=== PATIENT | male | born 1975 | race Caucasian/White ===

== ENCOUNTER 2020-11-06 10:33 | Outpatient (CLI) | payer BC ==
[2020-11-06 14:37] LABS: BASOPHILS % (AUTO) 0.6 %; EOSINOPHILS # (AUTO) 0.1 10^3/uL (0.0-0.7); HCT - HEMATOCRIT 46.8 % (42.0-52.0); LYMPHOCYTES # (AUTO) 1.3 10^3/uL (1.5-3.5); MEAN CORPUSCULAR HEMOGLOBIN 32.2 pg (27.0-31.0); MEAN CORPUSCULAR HGB CONC 34.2 g/dL (32.0-36.0); MEAN CORPUSCULAR VOLUME 94.2 fL (80.0-94.0); MEAN PLATELET VOLUME 10.1 fL (7.4-11.4); MONOCYTES # (AUTO) 0.5 10^3/uL (0.0-1.0); MONOCYTES % (AUTO) 10.4 %; NEUTROPHILS # (AUTO) 3.3 10^3/uL (1.5-6.6); NEUTROPHILS % (AUTO) 63.8 %; PLT - PLATELET COUNT 241 10^3/uL (130-450); RED BLOOD COUNT 4.97 10^6/uL (4.70-6.10); RED CELL DISTRIBUTION WIDTH 12.3 % (12.0-15.0); WHITE BLOOD COUNT 5.2 x10^3/uL (4.8-10.8)
[2020-11-06 15:51] LABS: ALBUMIN 4.6 g/dL (3.2-5.5); ALBUMIN/GLOBULIN RATIO 1.4 (1.0-2.2); ALKALINE PHOSPHATASE 78 IU/L (42-121); ALT ALANINE AMINOTRANSFERASE 73 IU/L (10-60); AST ASPARTATE AMINOTRANSFERASE 47 IU/L (10-42); BILIRUBIN,TOTAL 1.2 mg/dL (0.2-1.0); BUN - BLOOD UREA NITROGEN 20 mg/dL (6-20); CALCIUM 9.4 mg/dL (8.5-10.3); CARBON DIOXIDE - CO2 27 mmol/L (21-32); CHLORIDE 100 mmol/L (101-111); CHOL/HDL RATIO 4.7 (<5.0); CHOLESTEROL 184 mg/dL; GFR - MDRD 82 (>89); GLUCOSE 98 mg/dL (70-100); HDL CHOLESTEROL 39 mg/dL; LDL CHOLESTEROL,CALCULATED 71 mg/dL; LDL/HDL RATIO 1.8 (<3.6); POTASSIUM 4.1 mmol/L (3.5-5.0); SODIUM 136 mmol/L (135-145); TRIGLYCERIDES 368 mg/dL; VLDL CHOLESTEROL 74 mg/dL
[2020-11-06 16:03] LABS: THYROID STIMULATING HORMONE 1.13 uIU/mL (0.34-5.60)
== END 2020-11-06 10:34 | disposition home or self-care (01) ==
LOC: LAB.S 10:33
PROVIDERS: ATTEND Registered Nurse
DX: Z00.00 Encounter for general adult medical examination without abnormal findings (principal); E29.1 Testicular hypofunction
CPT/HCPCS: 36415; 80053; 80061; 83721; 84153; 84403; 84443; 85025

== ENCOUNTER 2022-02-17 12:10 | Outpatient (CLI) | payer BC ==
[2022-02-18 09:31] LABS: BASOPHILS % (AUTO) 0.6 %; EOSINOPHILS # (AUTO) 0.1 10^3/uL (0.0-0.7); HCT - HEMATOCRIT 44.2 % (42.0-52.0); HGB - HEMOGLOBIN 14.5 g/dL (14.0-18.0); LYMPHOCYTES # (AUTO) 1.3 10^3/uL (1.5-3.5); LYMPHOCYTES % (AUTO) 23.1 %; MEAN CORPUSCULAR HEMOGLOBIN 31.7 pg (27.0-31.0); MEAN CORPUSCULAR HGB CONC 32.8 g/dL (32.0-36.0); MEAN CORPUSCULAR VOLUME 96.7 fL (80.0-94.0); MEAN PLATELET VOLUME 10.1 fL (7.4-11.4); MONOCYTES # (AUTO) 0.5 10^3/uL (0.0-1.0); MONOCYTES % (AUTO) 8.5 %; NEUTROPHILS # (AUTO) 3.6 10^3/uL (1.5-6.6); NEUTROPHILS % (AUTO) 65.6 %; PLT - PLATELET COUNT 261 10^3/uL (130-450); RED BLOOD COUNT 4.57 10^6/uL (4.70-6.10); WHITE BLOOD COUNT 5.4 x10^3/uL (4.8-10.8)
[2022-02-18 10:41] LABS: ALBUMIN 4.4 g/dL (3.2-5.5); ALBUMIN/GLOBULIN RATIO 1.3 (1.0-2.2); ALKALINE PHOSPHATASE 89 IU/L (42-121); ALT ALANINE AMINOTRANSFERASE 70 IU/L (10-60); AST ASPARTATE AMINOTRANSFERASE 47 IU/L (10-42); BILIRUBIN,TOTAL 0.8 mg/dL (0.2-1.0); BUN - BLOOD UREA NITROGEN 15 mg/dL (6-20); CALCIUM 9.9 mg/dL (8.5-10.3); CARBON DIOXIDE - CO2 27 mmol/L (21-32); CHLORIDE 100 mmol/L (101-111); CHOLESTEROL 164 mg/dL; GFR - MDRD 81 (>89); GLUCOSE 87 mg/dL (70-100); HDL CHOLESTEROL 41 mg/dL; LDL CHOLESTEROL,CALCULATED 43 mg/dL; POTASSIUM 4.3 mmol/L (3.5-5.0); SODIUM 138 mmol/L (135-145); TOTAL PROTEIN 7.8 g/dL (6.7-8.2); TRIGLYCERIDES 398 mg/dL; VLDL CHOLESTEROL 80 mg/dL
[2022-02-18 10:51] LABS: THYROID STIMULATING HORMONE 1.53 uIU/mL (0.34-5.60)
== END 2022-02-17 12:11 | disposition home or self-care (01) ==
LOC: LAB.N 12:10
PROVIDERS: ATTEND Registered Nurse
DX: E29.1 Testicular hypofunction (principal); Z12.5 Encounter for screening for malignant neoplasm of prostate; Z13.29 Encounter for screening for other suspected endocrine disorder; Z79.899 Other long term (current) drug therapy
CPT/HCPCS: 36415; 80053; 80061; 83721; 84153; 84403; 84443; 85025

== ENCOUNTER 2022-03-16 08:28 | Emergency (ER) | payer BC ==
--- OUTSIDE RECORDS SUMMARY | 2022-03-16 08:53 | EXTERNAL MEDICAL SUMMARY RPT | Continuity of Care Document ---
:1975 Author Organization [facility] Address [address] [place] [address] Phone Care Team Providers Name Role Phone Unavailable Unavailable Unavailable Rachel Norman Unavailable Unavailable Allergies No information. Encounters No information. Functional Status No information. Immunizations No information. Medications date description facility 2022-01-27 00:00 buspirone [facility] sanjay 2021-12-20 00:00 escitalopram oxalate Walk-In [facility] Pr imary [facility] sanjay 2022-03-02 00:00 testosterone cypionate Walk[facility] sanjay 2022-01-27 00:00 lisinopril-hydrochlorothiazide Walk[facility]In [facility] sanjay 2022-01-05 00:00 amoxicillin Walk[facility]In [facility] sanjay 2022-01-05 00:00 amoxicillin [facility]In [facility] sanjay 2022-03-02 00:00 syringe with needle Walk-In Clinic [facility] Services sanjay 2022-01-27 00:00 bupropion hcl Walk-In [facility] Terell grace 2022-03-15 00:00 hydrocortisone-pramoxine Walk-In [facility] c [facility] sanjay 2022-03-15 00:00 nitroglycerin Walk[facility]In [facility] Prim [facility] sanjay 2022-01-05 00:00 amoxicillin Walk[facility]In [facility] Prim [facility] sanjay 2022-03-15 00:00 nitroglycerin Walk[facility]In [facility] sanjay 2022-03-02 00:00 testosterone cypionate Walk[facility]In [facility] Terell grace 2022-01-27 00:00 lisinopril-hydrochlorothiazide Walk[facility]In [facility] Terell grace 2022-03-15 00:00 hydrocortisone-pramoxine Walk[facility]In [facility] c [facility] C sanjay 2022-03-02 00:00 syringe with needle Walk-In Clinic Latsaha roxanna [facility] C sanjay 2022-03-02 00:00 testosterone cypionate Walk-In Clinic [facility] C sanjay 2021-12-20 00:00 amlodipine Walk-In [facility] Prim [facility] C sanjay 2022-01-04 00:00 amlodipine Walk-In [facility] Prim [facility] C sanjay 2022-01-05 00:00 amlodipine Walk-In [facility] Prim [facility] C sanjay 2022-01-27 00:00 amlodipine Walk-In [facility] Prim [facility] C sanjay 2022-02-18 00:00 amlodipine Walk-In [facility] Prim [facility] C sanjay 2022-03-02 00:00 amlodipine Walk-In [facility] Prim [facility] C sanjay 2022-03-08 00:00 amlodipine Walk-In [facility] Prim [facility] C sanjay 2022-03-09 00:00 amlodipine Walk-In [facility] Prim [facility] C sanjay 2022-03-15 00:00 amlodipine Walk-In [facility] Prim [facility] C sanjay 2022-01-27 00:00 buspirone Walk[facility]In [facility] Terell grace 2022-01-27 00:00 lisinopril-hydrochlorothiazide Walk[facility]In Clinic [facility] C sanjay 2021-12-20 00:00 amlodipine Walk-[facility] Prim [facility] C sanjay 2022-01-04 00:00 amlodipine Walk-In [facility] Prim [facility] C sanjay 2022-01-05 00:00 amlodipine Walk-In [facility] C sanjay 2022-01-27 00:00 amlodipine Walk-In [facility] Prim [facility] C sanjay 2022-02-18 00:00 amlodipine Walk-In [facility] Prim [facility] C sanjay 2022-03-02 00:00 amlodipine Walk-In [facility] Terell grace 2022-03-08 00:00 amlodipine Walk-In [facility] Prim [facility] C sanjay 2022-03-09 00:00 amlodipine Walk-In [facility] Prim [facility] C sanjay 2022-03-15 00:00 amlodipine Walk-In [facility] Prim [facility] C sanjay 2022-01-05 00:00 amoxicillin Walk[facility]In [facility] Prim [facility] C sanjay 2021-12-20 00:00 amlodipine Walk-In [facility] Prim [facility] C sanjay 2022-01-04 00:00 amlodipine Walk-In Clinic Prim [facility] C sanjay 2022-01-05 00:00 amlodipine Walk-In [facility] Prim [facility] C sanjay 2022-01-27 00:00 amlodipine Walk-In Clinic Prim [facility] C sanjay 2022-02-18 00:00 amlodipine Walk-In [facility] Prim [facility] C sanjay 2022-03-02 00:00 amlodipine Walk-In [facility] Prim [facility] C sanjay 2022-03-08 00:00 amlodipine Walk-In Clinic Prim [facility] C sanjay 2022-03-09 00:00 amlodipine Walk-In [facility] Prim [facility] C sanjay 2022-03-15 00:00 amlodipine Walk-In Clinic Prim [facility] C sanjay 2021-12-20 00:00 escitalopram oxalate Walk-In Clinic Pr imary [facility] C sanjay 2022-01-27 00:00 lisinopril-hydrochlorothiazide Walk-In Clinic [facility] C sanjay 2021-12-20 00:00 atorvastatin Walk-In Clinic Prim [facility] C sanjay 2022-01-04 00:00 atorvastatin Walk-In Clinic Prim [facility] C sanjay 2022-01-05 00:00 atorvastatin Walk-In Clinic Prim [facility] C sanjay 2022-01-27 00:00 atorvastatin Walk-In Clinic Prim [facility] C sanjay 2022-02-18 00:00 atorvastatin Walk-In Clinic Prim [facility] C sanjay 2022-03-02 00:00 atorvastatin Walk-In Clinic Prim [facility] C sanjay 2022-03-08 00:00 atorvastatin Walk-In Clinic Prim [facility] C sanjay 2022-03-09 00:00 atorvastatin Walk-In Clinic Prim [facility] C sanjay 2022-03-15 00:00 atorvastatin Walk-In Clinic Prim [facility] C sanjay 2021-12-20 00:00 atorvastatin Walk-In [facility] Prim [facility] C sanjay 2022-01-04 00:00 atorvastatin Walk-In Clinic Prim [facility] C sanjay 2022-01-05 00:00 atorvastatin Walk-In Clinic Prim rtevor [facility] C sanjay 2022-01-27 00:00 atorvastatin Walk-In Clinic Prim [facility] C sanjay 2022-02-18 00:00 atorvastatin Walk-In Clinic Prim [facility] C sanjay 2022-03-02 00:00 atorvastatin Walk-In Clinic Prim [facility] C sanjay 2022-03-08 00:00 atorvastatin Walk-In Clinic Prim [facility] C sanjay 2022-03-09 00:00 atorvastatin Walk-In Clinic Prim [facility] C sanjay 2022-03-15 00:00 atorvastatin Walk-In Clinic Prim [facility] C sanjay 2022-03-15 00:00 hydrocodone-acetaminophen Walk-In Clin ic [facility] C sanjay 2022-01-27 00:00 buspirone Walk-In [facility] Prim [facility] C sanjay 2021-12-20 00:00 escitalopram oxalate Walk-In Clinic Pr imary [facility] C sanjay 2022-01-27 00:00 bupropion hcl Walk-In [facility] Prim [facility] C sanjay 2022-03-15 00:00 nitroglycerin Walk-In Clinic Prim [facility] C sanjay 2021-12-20 00:00 amlodipine Walk-In [facility] Prim [facility] C sanjay 2022-01-04 00:00 amlodipine Walk-In Clinic Prim [facility] C sanjay 2022-01-05 00:00 amlodipine Walk-In Clinic Prim [facility] C sanjay 2022-01-27 00:00 amlodipine Walk-In [facility] Prim [facility] C sanjay 2022-02-18 00:00 amlodipine Walk-In Clinic Prim [facility] C sanjay 2022-03-02 00:00 amlodipine Walk-In Clinic Prim [facility] C sanjay 2022-03-08 00:00 amlodipine Walk-In Clinic Prim [facility] C sanjay 2022-03-09 00:00 amlodipine Walk-In Clinic Prim [facility] C sanjay 2022-03-15 00:00 amlodipine Walk-In Clinic Prim [facility] C sanjay 2021-12-20 00:00 atorvastatin Walk-In Clinic Prim [facility] C sanjay 2022-01-04 00:00 atorvastatin Walk-In Clinic Prim [facility] C sanjay 2022-01-05 00:00 atorvastatin Walk-In Clinic Prim [facility] C sanjay 2022-01-27 00:00 atorvastatin Walk-In [facility] Prim [facility] C sanjay 2022-02-18 00:00 atorvastatin Walk-In [facility] Prim [facility] C sanjay 2022-03-02 00:00 atorvastatin Walk-In [facility] Prim [facility] C sanjay 2022-03-08 00:00 atorvastatin Walk-In Clinic Prim tervor [facility] C sanjay 2022-03-09 00:00 atorvastatin Walk-In Clinic Prim [facility] C sanjay 2022-03-15 00:00 atorvastatin Walk-In Clinic Prim [facility] C sanjay 2021-12-20 00:00 atorvastatin Walk-In Clinic Prim [facility] C sanjay 2022-01-04 00:00 atorvastatin Walk-In Clinic Prim [facility] C sanjay 2022-01-05 00:00 atorvastatin Walk-In Clinic Prim rtevor [facility] C sanjay 2022-01-27 00:00 atorvastatin Walk-In Clinic Prim [facility] C sanjay 2022-02-18 00:00 atorvastatin Walk-In Clinic Prim [facility] Terell grace 2022-03-02 00:00 atorvastatin [facility] Terell grace 2022-03-08 00:00 atorvastatin Walk-In Clinic [facility] Care & Anc[facility] Services C sanjay 2022-03-09 00:00 atorvastatin Walk-In Clinic [facility] Services Terell grace 2022-03-15 00:00 atorvastatin Walk-In Clinic [facility] Care [facility] Services Terell grcae 2022-03-15 00:00 hydrocodone-acetaminophen Walk-In Clin ic [facility] Terell grace 2021-12-20 00:00 escitalopram oxalate Walk-In Clinic [facility] Anc[facility] Services Terell grace 2022-03-15 00:00 hydrocortisone-pramoxine Walk-In Cl[facility] Services Terell grace 2022-03-15 00:00 hydrocodone-acetaminophen Walk-In Clin ic [facility] Terell grace 2022-03-02 00:00 testosterone cypionate Walk-In Clinic [facility] Terell grace 2022-01-27 00:00 bupropion hcl Walk-In Clinic [facility] Services Terell grace 2022-03-15 00:00 hydrocodone-acetaminophen Walk-In Clin ic [facility] Services Terell grace 2022-01-27 00:00 buspirone Walk-In Clinic [facility] Care [facility] Anc[facility] Services Terell grace 2022-03-15 00:00 nitroglycerin Walk-In Clinic [facility] Services Terell grace 2022-03-15 00:00 hydrocortisone-pramoxine Walk[facility]In Cl[facility] Services Terell grace 2022-03-02 00:00 syringe with needle Walk-In Clinic [facility] Care & Anc[facility] Services Terell grace 2022-01-27 00:00 bupropion hcl Walk-In Clinic [facility] Care & Anc[facility] Services Terell grace Problems date description facility 2022-01-04 00:00 Chronic maxillary sinusitis Walk-In Cl in [facility] Services Terell grace 2022-01-25 00:00 Thyroid disorder screening Walk-In Cli hilary Primary [facility] Services Terell grace 2022-01-25 00:00 Long-term drug therapy Walk-In Clinic [facility] Terell grace 2022-01-25 00:00 Screening for malignant neoplasm Walk- In Clinic Primary Care & of prostate Ancillary Services Terell sanjay 2022-01-25 00:00 Long-term (current) drug use Walk-In C [facility] Primary Care & Ancillary Services Terell grace 2022-01-25 00:00 Screening for malignant neoplasms Walk -In Clinic [facility] Care & of prostate Ancillary Services Terell sanjay 2022-01-25 00:00 Screening for thyroid disorders Walk-I n Clinic [facility] Services Terell sanjay 2022-01-25 00:00 Encounter for screening for Walk-In Cl in Primary Care & malignant neoplasm of prostate Ancillary Services Ehsan 2022-01-25 00:00 Encounter for screening for other Walk -In Clinic Primary Care & suspected endocrine disorder Ancillary S manuel Manriquezton 2022-01-25 00:00 Other intermediate card tender (current) drug Walk-In Clinic Primary Care & therapy Ancillary Services Terell sanjay 2022-03-15 00:00 Internal thrombosed hemorrhoids Walk[facility]I n Clinic [facility] Terell grace 2022-03-15 00:00 Thrombosed internal hemorrhoids Walk[facility]I n [facility] Terell sanjay 2022-03-15 00:00 Other hemorrhoids Walk[facility]In [facility] Prim [facility] Terell grace Procedures date description facility 2022-01-04 00:00 Visit Code Hold Walk-In [facility] Prim [facility] Terell escalonasanjay 2022-01-25 00:00 Visit Code Hold Walk-In [facility] Prim [facility] Terell grace 2022-03-15 00:00 Visit Code Hold Walk-In [facility] Prim [facility] Services Terell escalonasanjay 2022-01-25 00:00 First Vx - Ix admin via ID IM or Walk- In Clinic Primary Care & jet injects without counseling by Ancill trevor Services Ehsan physician 2022-01-25 00:00 Fluarix Quadrivalent Intramuscular Wal [facility]-In Clinic [facility] & Suspension Prefilled Syringe 0.5 ML Anci llary Services Ehsan Results/Labs test date author facility value unit interpret ation Result panel 1 (unknown) (no date) (unknown) Walk-In (no value) (units (unk nown) Clinic Primary unknown) [facility] Services Ehsan Result panel 2 (unknown) (no date) (unknown) Walk-In (no value) (units (unk nown) Clinic Primary unknown) [facility] Ehsan Result panel 3 (unknown) (no date) (unknown) Walk-In (no value) (units (unk nown) Clinic Primary unknown) [facility] Ehsan Result panel 4 (unknown) (no date) (unknown) Walk-In (no value) (units (unk nown) Clinic Primary unknown) [facility] Ehsan Result panel 5 (unknown) (no date) (unknown) Walk-In (no value) (units (unk nown) Clinic Primary unknown) [facility] Ehsan Result panel 6 (unknown) (no date) (unknown) Walk-In (no value) (units (unk nown) Clinic Primary unknown) [facility] Ehsan Result panel 7 (unknown) (no date) (unknown) Walk-In (no value) (units (unk nown) Clinic Primary unknown) [facility] Ehsan Result panel 8 (unknown) (no date) (unknown) Walk-In (no value) (units (unk nown) Clinic Primary unknown) [facility] Ehsan Result panel 9 (unknown) (no date) (unknown) Walk-In (no value) (units (unk nown) Clinic Primary unknown) [facility] Ehsan Result panel 10 (unknown) (no date) (unknown) Walk-In (no value) (units (unk nown) Clinic Primary unknown) [facility] Ehsan Result panel 11 (unknown) (no date) (unknown) Walk-In (no value) (units (unk nown) Clinic Primary unknown) [facility] Ehsan Result panel 12 (unknown) (no date) (unknown) Walk-In (no value) (units (unk nown) Clinic Primary unknown) [facility] Ehsan Result panel 13 (unknown) (no date) (unknown) Walk-In (no value) (units (unk nown) Clinic Primary unknown) [facility] Ehsan Result panel 14 (unknown) (no date) (unknown) Walk-In (no value) (units (unk nown) Clinic Primary unknown) [facility] Ehsan Result panel 15 (unknown) (no date) (unknown) Walk-In (no value) (units (unk nown) Clinic Primary unknown) [facility] Ehsan Result panel 16 (unknown) (no date) (unknown) Walk-In (no value) (units (unk nown) Clinic Primary unknown) [facility] Ehsan Result panel 17 (unknown) (no date) (unknown) Walk-In (no value) (units (unk nown) Clinic Primary unknown) [facility] Ehsan Result panel 18 (unknown) (no date) (unknown) Walk-In (no value) (units (unk nown) Clinic Primary unknown) [facility] Ehsan Result panel 19 (unknown) (no date) (unknown) Walk-In (no value) (units (unk nown) Clinic Primary unknown) [facility] Ehsan Result panel 20 (unknown) (no date) (unknown) Walk-In (no value) (units (unk nown) Clinic Primary unknown) [facility] Ehsan Result panel 21 (unknown) (no date) (unknown) Walk-In (no value) (units (unk nown) Clinic Primary unknown) [facility] Ehsan Result panel 22 (unknown) (no date) (unknown) Walk-In (no value) (units (unk nown) Clinic Primary unknown) [facility] Ehsan Result panel 23 (unknown) (no date) (unknown) Walk-In (no value) (units (unk nown) Clinic Primary unknown) [facility] Ehsan Result panel 24 (unknown) (no date) (unknown) Walk-In (no value) (units (unk nown) Clinic Primary unknown) [facility] Ehsan Result panel 25 (unknown) (no date) (unknown) Walk-In (no value) (units (unk nown) Clinic Primary unknown) [facility] Ehsan Result panel 26 (unknown) (no date) (unknown) Walk-In (no value) (units (unk nown) Clinic Primary unknown) [facility] Ehsan Result panel 27 (unknown) (no date) (unknown) Walk-In (no value) (units (unk nown) Clinic Primary unknown) [facility] Ehsan Result panel 28 (unknown) (no date) (unknown) Walk-In (no value) (units (unk nown) Clinic Primary unknown) [facility] Ehsan Result panel 29 (unknown) (no date) (unknown) Walk-In (no value) (units (unk nown) Clinic Primary unknown) [facility] Ehsan Result panel 30 (unknown) (no date) (unknown) Walk-In (no value) (units (unk nown) Clinic Primary unknown) [facility] Ehsan Result panel 31 (unknown) (no date) (unknown) Walk-In (no value) (units (unk nown) Clinic Primary unknown) [facility] Services Ehsan Result panel 32 (unknown) (no date) (unknown) Walk-In (no value) (units (unk nown) Clinic Primary unknown) [facility] Ehsan Result panel 33 (unknown) (no date) (unknown) Walk-In (no value) (units (unk nown) Clinic Primary unknown) [facility] Ehsan Result panel 34 (unknown) (no date) (unknown) Walk-In (no value) (units (unk nown) Clinic Primary unknown) [facility] Ehsan Result panel 35 (unknown) (no date) (unknown) Walk-In (no value) (units (unk nown) Clinic Primary unknown) [facility] Ehsan Result panel 36 (unknown) (no date) (unknown) Walk-In (no value) (units (unk nown) Clinic Primary unknown) [facility] Ehsan Result panel 37 (unknown) (no date) (unknown) Walk-In (no value) (units (unk nown) Clinic Primary unknown) [facility] Ehsan Result panel 38 (unknown) (no date) (unknown) Walk-In (no value) (units (unk nown) Clinic Primary unknown) [facility] Ehsan Result panel 39 (unknown) (no date) (unknown) Walk-In (no value) (units (unk nown) Clinic Primary unknown) [facility] Ehsan Result panel 40 (unknown) (no date) (unknown) Walk-In (no value) (units (unk nown) Clinic Primary unknown) [facility] Ehsan Result panel 41 (unknown) (no date) (unknown) Walk-In (no value) (units (unk nown) Clinic Primary unknown) [facility] Ehsan Result panel 42 (unknown) (no date) (unknown) Walk-In (no value) (units (unk nown) Clinic Primary unknown) [facility] Ehsan Result panel 43 (unknown) (no date) (unknown) Walk-In (no value) (units (unk nown) Clinic Primary unknown) [facility] Ehsan Result panel 44 (unknown) (no date) (unknown) Walk-In (no value) (units (unk nown) Clinic Primary unknown) [facility] Ehsan Result panel 45 (unknown) (no date) (unknown) Walk-In (no value) (units (unk nown) Clinic Primary unknown) [facility] Ehsan Result panel 46 (unknown) (no date) (unknown) Walk-In (no value) (units (unk nown) Clinic Primary unknown) [facility] Ehsan Result panel 47 (unknown) (no date) (unknown) Walk-In (no value) (units (unk nown) Clinic Primary unknown) [facility] Ehsan Result panel 48 (unknown) (no date) (unknown) Walk-In (no value) (units (unk nown) Clinic Primary unknown) [facility] Ehsan Result panel 49 (unknown) (no date) (unknown) Walk-In (no value) (units (unk nown) Clinic Primary unknown) [facility] Ehsan Result panel 50 (unknown) (no date) (unknown) Walk-In (no value) (units (unk nown) Clinic Primary unknown) [facility] Ehsan Result panel 51 (unknown) (no date) (unknown) Walk-In (no value) (units (unk nown) Clinic Primary unknown) [facility] Ehsan Result panel 52 (unknown) (no date) (unknown) Walk-In (no value) (units (unk nown) Clinic Primary unknown) [facility] Ehsan Result panel 53 (unknown) (no date) (unknown) Walk-In (no value) (units (unk nown) Clinic Primary unknown) [facility] Ehsan Result panel 54 (unknown) (no date) (unknown) Walk-In (no value) (units (unk nown) Clinic Primary unknown) [facility] Ehsan Result panel 55 (unknown) (no date) (unknown) Walk-In (no value) (units (unk nown) Clinic Primary unknown) [facility] Ehsan Result panel 56 (unknown) (no date) (unknown) Walk-In (no value) (units (unk nown) Clinic Primary unknown) [facility] Ehsan Result panel 57 (unknown) (no date) (unknown) Walk-In (no value) (units (unk nown) Clinic Primary unknown) [facility] Ehsan Result panel 58 (unknown) (no date) (unknown) Walk-In (no value) (units (unk nown) Clinic Primary unknown) [facility] Ehsan Result panel 59 (unknown) (no date) (unknown) Walk-In (no value) (units (unk nown) Clinic Primary unknown) [facility] Ehsan Result panel 60 (unknown) (no date) (unknown) Walk-In (no value) (units (unk nown) Clinic Primary unknown) [facility] Ehsan Result panel 61 (unknown) (no date) (unknown) Walk-In (no value) (units (unk nown) Clinic Primary unknown) [facility] Ehsan Result panel 62 (unknown) (no date) (unknown) Walk-In (no value) (units (unk nown) Clinic Primary unknown) Care [facility] Ehsan Result panel 63 (unknown) (no date) (unknown) Walk-In (no value) (units (unk nown) Clinic Primary unknown) [facility] Ehsan Result panel 64 (unknown) (no date) (unknown) Walk-In (no value) (units (unk nown) Clinic Primary unknown) [facility] Ehsan Result panel 65 (unknown) (no date) (unknown) Walk-In (no value) (units (unk nown) Clinic Primary unknown) Care [facility] Ehsan Result panel 66 (unknown) (no date) (unknown) Walk-In (no value) (units (unk nown) Clinic Primary unknown) [facility] Ehsan Result panel 67 (unknown) (no date) (unknown) Walk-In (no value) (units (unk nown) Clinic Primary unknown) [facility] Ehsan Result panel 68 (unknown) (no date) (unknown) Walk-In (no value) (units (unk nown) Clinic Primary unknown) Care [facility] Services Ehsan Result panel 69 (unknown) (no date) (unknown) Walk-In (no value) (units (unk nown) Clinic Primary unknown) Care [facility] Services Ehsan Result panel 70 (unknown) (no date) (unknown) Walk-In (no value) (units (unk nown) Clinic Primary unknown) Care [facility] Services Ehsan Result panel 71 (unknown) (no date) (unknown) Walk-In (no value) (units (unk nown) Clinic Primary unknown) Care [facility] Services Ehsan Result panel 72 (unknown) (no date) (unknown) Walk-In (no value) (units (unk nown) Clinic Primary unknown) Care [facility] Services Ehsan Result panel 73 (unknown) (no date) (unknown) Walk-In (no value) (units (unk nown) Clinic Primary unknown) Care [facility] Services Ehsan Result panel 74 (unknown) (no date) (unknown) Walk-In (no value) (units (unk nown) Clinic Primary unknown) Care [facility] Ehsan Result panel 75 (unknown) (no date) (unknown) Walk-In (no value) (units (unk nown) Clinic Primary unknown) Care [facility] Ehsan Result panel 76 (unknown) (no date) (unknown) Walk-In (no value) (units (unk nown) Clinic Primary unknown) Care [facility] Ehsan Result panel 77 (unknown) (no date) (unknown) Walk-In (no value) (units (unk nown) Clinic Primary unknown) Care & [facility] Result panel 78 (unknown) (no date) (unknown) [facility] Result panel 79 (unknown) (no date) (unknown) [facility] (no value) [facility] Result panel 80 (unknown) (no date) (unknown) [facility] (no value) [facility] Result panel 81 (unknown) (no date) (unknown) [facility] (no value) [facility] Result panel 82 (unknown) (no date) (unknown) [facility] (no value) [facility] Result panel 83 (unknown) (no date) (unknown) [facility] (no value) [facility] Result panel 84 (unknown) (no date) (unknown) [facility] (no value) [facility] Result panel 85 (unknown) (no date) (unknown) [facility]no value) [facility] Result panel 86 (unknown) (no date) (unknown) [facility] (no value) [facility] Result panel 87 (unknown) (no date) (unknown) [facility] (no value) [facility] Result panel 88 (unknown) (no date) (unknown) [facility] (no value) [facility] Result panel 89 (unknown) (no date) (unknown) [facility]no value) [facility] Result panel 90 (unknown) (no date) (unknown) [facility] (no value) [facility] Result panel 91 (unknown) (no date) (unknown) [facility] (no value) [facility] Result panel 92 (unknown) (no date) (unknown) [facility] (no value) [facility] Result panel 93 (unknown) (no date) (unknown) [facility] (no value) [facility] Result panel 94 (unknown) (no date) (unknown) [facility] (no value) [facility] Result panel 95 (unknown) (no date) (unknown) [facility] (no value) [facility] Result panel 96 (unknown) (no date) (unknown) [facility] (no value) [facility] Result panel 97 (unknown) (no date) (unknown) [facility] (no value) [facility] Result panel 98 (unknown) (no date) (unknown) [facility] (no value) [facility] Result panel 99 (unknown) (no date) (unknown) [facility] (no value) [facility] Result panel 100 (unknown) (no date) (unknown) [facility] (no value) [facility] Result panel 101 (unknown) (no date) (unknown) [facility] (no value) [facility] Result panel 102 (unknown) (no date) (unknown) [facility] (no value) [facility] Result panel 103 (unknown) (no date) (unknown) [facility] (no value) [facility] Result panel 104 (unknown) (no date) (unknown) [facility] (no value) [facility] Result panel 105 (unknown) (no date) (unknown) [facility] (no value) [facility] Result panel 106 (unknown) (no date) (unknown) [facility] (no value) [facility] Result panel 107 (unknown) (no date) (unknown) [facility] (no value) [facility] Result panel 108 (unknown) (no date) (unknown) [facility] (no value) [facility] Result panel 109 (unknown) (no date) (unknown) [facility] (no value) [facility] Result panel 110 (unknown) (no date) (unknown) [facility] (no value) [facility] Result panel 111 (unknown) (no date) (unknown) [facility] (no value) [facility] Result panel 112 (unknown) (no date) (unknown) [facility] (no value) [facility] Result panel 113 (unknown) (no date) (unknown) [facility] (no value) [facility] Result panel 114 (unknown) (no date) (unknown) [facility] (no value) [facility] Result panel 115 (unknown) (no date) (unknown) [facility] (no value) [facility] Result panel 116 (unknown) (no date) (unknown) [facility] (no value) [facility] Result panel 117 (unknown) (no date) (unknown) [facility] (no value) [facility] Result panel 118 (unknown) (no date) (unknown) [facility] (no value) [facility] Result panel 119 (unknown) (no date) (unknown) [facility] (no value) [facility] Result panel 120 (unknown) (no date) (unknown) [facility] (no value) [facility] Result panel 121 (unknown) (no date) (unknown) [facility] (no value) [facility] Result panel 122 (unknown) (no date) (unknown) [facility] (no value) [facility] Result panel 123 (unknown) (no date) (unknown) [facility] (no value) [facility] Result panel 124 (unknown) (no date) (unknown) [facility] (no value) [facility] Result panel 125 (unknown) (no date) (unknown) [facility] (no value) [facility] Result panel 126 (unknown) (no date) (unknown) [facility] (no value) [facility] Result panel 127 (unknown) (no date) (unknown) [facility] (no value) [facility] Result panel 128 (unknown) (no date) (unknown) [facility] (no value) [facility] Result panel 129 (unknown) (no date) (unknown) [facility] (no value) [facility] Result panel 130 (unknown) (no date) (unknown) [facility] (no value) [facility] Result panel 131 (unknown) (no date) (unknown) [facility] (no value) [facility] Result panel 132 (unknown) (no date) (unknown) [facility] (no value) [facility] Result panel 133 (unknown) (no date) (unknown) [facility] (no value) [facility] Result panel 134 (unknown) (no date) (unknown) [facility] (no value) [facility] Result panel 135 (unknown) (no date) (unknown) [facility] (no value) [facility] Result panel 136 (unknown) (no date) (unknown) [facility] (no value) [facility] Result panel 137 (unknown) (no date) (unknown) [facility] (no value) [facility] Result panel 138 (unknown) (no date) (unknown) [facility] (no value) [facility] Result panel 139 (unknown) (no date) (unknown) [facility] (no value) [facility] Result panel 140 (unknown) (no date) (unknown) [facility] (no value) [facility] Result panel 141 (unknown) (no date) (unknown) [facility] (no value) [facility] Result panel 142 (unknown) (no date) (unknown) [facility] (no value) [facility] Result panel 143 (unknown) (no date) (unknown) [facility] (no value) [facility] Result panel 144 (unknown) (no date) (unknown) [facility] (no value) [facility] Result panel 145 (unknown) (no date) (unknown) [facility] (no value) [facility] Result panel 146 (unknown) (no date) (unknown) [facility] (no value) [facility] Result panel 147 (unknown) (no date) (unknown) [facility] (no value) [facility] Result panel 148 (unknown) (no date) (unknown) [facility] (no value) [facility] Result panel 149 (unknown) (no date) (unknown) [facility] (no value) [facility] Result panel 150 (unknown) (no date) (unknown) [facility] (no value) [facility] Result panel 151 (unknown) (no date) (unknown) [facility] (no value) [facility] Result panel 152 (unknown) (no date) (unknown) [facility] (no value) [facility] Result panel 153 (unknown) (no date) (unknown) [facility] (no value) [facility] Result panel 154 (unknown) (no date) (unknown) [facility] (no value) [facility] Result panel 155 (unknown) (no date) (unknown) [facility] (no value) [facility] Result panel 156 (unknown) (no date) (unknown) [facility] (no value) [facility] Result panel 157 (unknown) (no date) (unknown) [facility] (no value) [facility] Result panel 158 (unknown) (no date) (unknown) [facility] (no value) [facility] Result panel 159 (unknown) (no date) (unknown) [facility] (no value) [facility] Result panel 160 (unknown) (no date) (unknown) [facility] (no value) [facility] Result panel 161 (unknown) (no date) (unknown) [facility] (no value) [facility] Result panel 162 (unknown) (no date) (unknown) [facility] (no value) [facility] Result panel 163 (unknown) (no date) (unknown) [facility] (no value) [facility] Result panel 164 (unknown) (no date) (unknown) [facility] (no value) [facility] Result panel 165 (unknown) (no date) (unknown) [facility] (no value) [facility] Result panel 166 (unknown) (no date) (unknown) [facility] (no value) [facility] Result panel 167 (unknown) (no date) (unknown) [facility] (no value) [facility] Result panel 168 (unknown) (no date) (unknown) [facility] (no value) [facility] Result panel 169 (unknown) (no date) (unknown) [facility] (no value) [facility] Result panel 170 (unknown) (no date) (unknown) [facility] (no value) [facility] Result panel 171 (unknown) (no date) (unknown) [facility] (no value) [facility] Result panel 172 (unknown) (no date) (unknown) [facility] (no value) [facility] Result panel 173 (unknown) (no date) (unknown) [facility] (no value) [facility] Result panel 174 (unknown) (no date) (unknown) [facility] (no value) [facility] Result panel 175 (unknown) (no date) (unknown) [facility] (no value) [facility] Result panel 176 (unknown) (no date) (unknown) [facility] (no value) [facility] Result panel 177 (unknown) (no date) (unknown) [facility] (no value) [facility] Result panel 178 (unknown) (no date) (unknown) [facility] (no value) [facility] Result panel 179 (unknown) (no date) (unknown) [facility] (no value) [facility] Result panel 180 (unknown) (no date) (unknown) [facility] (no value) [facility] Result panel 181 (unknown) (no date) (unknown) [facility] (no value) [facility] Result panel 182 (unknown) (no date) (unknown) [facility] (no value) [facility] Result panel 183 (unknown) (no date) (unknown) [facility] (no value) [facility] Result panel 184 (unknown) (no date) (unknown) [facility] (no value) [facility] Result panel 185 (unknown) (no date) (unknown) [facility] (no value) [facility] Result panel 186 (unknown) (no date) (unknown) [facility] (no value) [facility] Result panel 187 (unknown) (no date) (unknown) [facility] (no value) [facility] Result panel 188 (unknown) (no date) (unknown) [facility] (no value) [facility] Result panel 189 (unknown) (no date) (unknown) [facility] (no value) [facility] Result panel 190 (unknown) (no date) (unknown) [facility] (no value) [facility] Result panel 191 (unknown) (no date) (unknown) [facility] (no value) [facility] Result panel 192 (unknown) (no date) (unknown) [facility] (no value) [facility] Result panel 193 (unknown) (no date) (unknown) [facility] (no value) [facility] Result panel 194 (unknown) (no date) (unknown) [facility] (no value) [facility] Result panel 195 (unknown) (no date) (unknown) [facility] (no value) [facility] Result panel 196 (unknown) (no date) (unknown) [facility] (no value) [facility] Result panel 197 (unknown) (no date) (unknown) [facility] (no value) [facility] Result panel 198 (unknown) (no date) (unknown) [facility] (no value) [facility] Result panel 199 (unknown) (no date) (unknown) [facility] (no value) [facility] Result panel 200 (unknown) (no date) (unknown) [facility] (no value) [facility] Result panel 201 (unknown) (no date) (unknown) [facility] (no value) [facility] Result panel 202 (unknown) (no date) (unknown) [facility] (no value) [facility] Result panel 203 (unknown) (no date) (unknown) [facility] (no value) [facility] Result panel 204 (unknown) (no date) (unknown) [facility] (no value) [facility] Result panel 205 (unknown) (no date) (unknown) [facility] (no value) [facility] Result panel 206 (unknown) (no date) (unknown) [facility] (no value) [facility] Result panel 207 (unknown) (no date) (unknown) [facility] (no value) [facility] Result panel 208 (unknown) (no date) (unknown) [facility] (no value) [facility] Result panel 209 (unknown) (no date) (unknown) [facility] (no value) [facility] Result panel 210 (unknown) (no date) (unknown) [facility] (no value) [facility] Result panel 211 (unknown) (no date) (unknown) [facility] (no value) [facility] Result panel 212 (unknown) (no date) (unknown) [facility] (no value) [facility] Result panel 213 (unknown) (no date) (unknown) [facility] (no value) [facility] Result panel 214 (unknown) (no date) (unknown) [facility] (no value) [facility] Result panel 215 (unknown) (no date) (unknown) [facility] (no value) [facility] Result panel 216 (unknown) (no date) (unknown) [facility] (no value) [facility] Result panel 217 (unknown) (no date) (unknown) [facility] (no value) [facility] Result panel 218 (unknown) (no date) (unknown) [facility] (no value) [facility] Result panel 219 (unknown) (no date) (unknown) [facility] (no value) [facility] Result panel 220 (unknown) (no date) (unknown) [facility] (no value) [facility] Result panel 221 (unknown) (no date) (unknown) [facility] (no value) [facility] Result panel 222 (unknown) (no date) (unknown) [facility] (no value) [facility] Result panel 223 (unknown) (no date) (unknown) [facility] (no value) [facility] Result panel 224 (unknown) (no date) (unknown) [facility] (no value) [facility] Result panel 225 (unknown) (no date) (unknown) [facility] (no value) [facility] Result panel 226 (unknown) (no date) (unknown) [facility] (no value) [facility] Result panel 227 (unknown) (no date) (unknown) [facility] (no value) [facility] Result panel 228 (unknown) (no date) (unknown) [facility] (no value) [facility] Result panel 229 (unknown) (no date) (unknown) [facility] (no value) [facility] Result panel 230 (unknown) (no date) (unknown) [facility] (no value) [facility] Result panel 231 (unknown) (no date) (unknown) [facility] (no value) [facility] Result panel 232 (unknown) (no date) (unknown) [facility] (no value) [facility] Result panel 233 (unknown) (no date) (unknown) [facility] (no value) [facility] Result panel 234 (unknown) (no date) (unknown) [facility] (no value) [facility] Result panel 235 (unknown) (no date) (unknown) [facility] (no value) [facility] Result panel 236 (unknown) (no date) (unknown) [facility] (no value) [facility] Result panel 237 (unknown) (no date) (unknown) [facility] (no value) [facility] Result panel 238 (unknown) (no date) (unknown) [facility] (no value) [facility] Result panel 239 (unknown) (no date) (unknown) [facility] (no value) [facility] Result panel 240 (unknown) (no date) (unknown) [facility] (no value) [facility] Result panel 241 (unknown) (no date) (unknown) [facility] (no value) [facility] Result panel 242 (unknown) (no date) (unknown) [facility] (no value) [facility] Result panel 243 (unknown) (no date) (unknown) [facility] (no value) [facility] Result panel 244 (unknown) (no date) (unknown) [facility] (no value) [facility] Result panel 245 (unknown) (no date) (unknown) [facility] (no value) [facility] Result panel 246 (unknown) (no date) (unknown) [facility] (no value) [facility] Result panel 247 (unknown) (no date) (unknown) [facility] (no value) [facility] Result panel 248 (unknown) (no date) (unknown) [facility] (no value) [facility] Result panel 249 (unknown) (no date) (unknown) Walk-In (no value) (units ([facility] nown) [facility] Primary unknown) [facility] Result panel 250 (unknown) (no date) (unknown) Walk-In (no value) (units ([facility] nown) Clinic Primary unknown) [facility] Result panel 251 (unknown) (no date) (unknown) Walk-In (no value) (units ([facility] nown) Clinic Primary unknown) [facility] Result panel 252 (unknown) (no date) (unknown) Walk-In (no value) (units ([facility] nown) Clinic Primary unknown) [facility] Result panel 253 (unknown) (no date) (unknown) Walk-In (no value) (units ([facility] nown) Clinic Primary unknown) [facility] Result panel 254 (unknown) (no date) (unknown) Walk-In (no value) (units (unk nown) Clinic Primary unknown) [facility] Result panel 255 (unknown) (no date) (unknown) Walk-In (no value) (units ([facility] nown) Clinic Primary unknown) [facility] Result panel 256 (unknown) (no date) (unknown) Walk-In (no value) (units ([facility] nown) Clinic Primary unknown) [facility] Result panel 257 (unknown) (no date) (unknown) Walk-In (no value) (units ([facility] nown) Clinic Primary unknown) [facility] Result panel 258 (unknown) (no date) (unknown) Walk-In (no value) (units ([facility] nown) Clinic Primary unknown) [facility] Result panel 259 (unknown) (no date) (unknown) Walk-In (no value) (units ([facility] nown) Clinic Primary unknown) [facility] Result panel 260 (unknown) (no date) (unknown) Walk-In (no value) (units ([facility] nown) Clinic Primary unknown) [facility] Result panel 261 (unknown) (no date) (unknown) Walk-In (no value) (units ([facility] nown) Clinic Primary unknown) [facility] Result panel 262 (unknown) (no date) (unknown) Walk-In (no value) (units ([facility] nown) Clinic Primary unknown) [facility] Result panel 263 (unknown) (no date) (unknown) Walk-In (no value) (units (unk nown) Clinic Primary unknown) [facility] Result panel 264 (unknown) (no date) (unknown) Walk-In (no value) (units (unk nown) Clinic Primary unknown) [facility] Result panel 265 (unknown) (no date) (unknown) Walk-In (no value) (units ([facility] nown) Clinic Primary unknown) [facility] [place] Social History date description facility 2022-01-04 00:00 Never smoker Walk-In [facility] [place] 2022-01-25 00:00 Never smoker Walk-In [facility] [place] 2022-03-15 00:00 Never smoker Walk-In [facility] Vital Signs date measurement value units 2022-01-04 00:00 BMI 35.73 kg/m2 2022-01-04 00:00 BP_diastolic 83 mmHg 2022-01-04 00:00 BP_systolic 146 mmHg 2022-01-04 00:00 heart_rate 66 /min 2022-01-04 00:00 height_metric 184.78 cm 2022-01-04 00:00 height_standard 72.75 in 2022-01-04 00:00 respiration_rate 16 /min 2022-01-04 00:00 temperature_metric 36.61 C 2022-01-04 00:00 temperature_standard 97.9 F 2022-01-04 00:00 weight_metric 121.56 kg 2022-01-04 00:00 weight_standard 268 lb 2022-01-25 00:00 BMI 35.60 kg/m2 2022-01-25 00:00 BP_diastolic 83 mmHg 2022-01-25 00:00 BP_systolic 134 mmHg 2022-01-25 00:00 heart_rate 65 /min 2022-01-25 00:00 height_metric 184.78 cm 2022-01-25 00:00 height_standard 72.75 in 2022-01-25 00:00 respiration_rate 16 /min 2022-01-25 00:00 temperature_metric 36.11 C 2022-01-25 00:00 temperature_standard 97 F 2022-01-25 00:00 weight_metric 121.11 kg 2022-01-25 00:00 weight_standard 267 lb 2022-03-15 00:00 BMI 35.73 kg/m2 2022-03-15 00:00 BP_diastolic 81 mmHg 2022-03-15 00:00 BP_systolic 135 mmHg 2022-03-15 00:00 heart_rate 77 /min 2022-03-15 00:00 height_metric 184.78 cm 2022-03-15 00:00 height_standard 72.75 in 2022-03-15 00:00 respiration_rate 15 /min 2022-03-15 00:00 temperature_metric 36.22 C 2022-03-15 00:00 temperature_standard 97.2 F 2022-03-15 00:00 weight_metric 121.56 kg 2022-03-15 00:00 weight_standard 268 lb
--- NOTE | 2022-03-16 10:23 | ED Physician Documentation ---
PD HPI GI BLEED - Stated complaint Stated Complaint: MALE GI - Chief complaint Chief Complaint: Abd Pain - History obtained from History obtained from: Patient, Friend - History of Present Illness Timing - onset: How many weeks ago (1) Timing - duration: Weeks (1) Timing - details: Gradual onset, Still present (steadily worsening over the timeframe. Severe pain in particular the past 1-2 days.) Associated symptoms: No: Vomiting, BRBPR, Maroon stool, Diarrhea, Constipation, Abdominal pain (just the pain in rectal area, which he states is a feeling of pressure and heaviness of the area.) Contributing factors: Other (patient has male partner and is male who has sex with males (MSM).). No: Sick contact Worsened by: Moving, Other (sitting in intolerable per patient.) Similar symptoms before: Has not had sx before Recently seen: Clinic (walk in clinic yesterday and Dx with possible internal hemorrhoids, as none external, and is tender around rectal area. Rx with topical hemorrhoid cream. Patient says no improvement and is much worse in fact.) Review of Systems Constitutional: denies: Fever, Chills GI: denies: Abdominal Pain, Vomiting, Diarrhea, Bloody / black stool Skin: denies: Rash, Lesions Neurologic: denies: Focal weakness, Numbness PD PAST MEDICAL HISTORY - Past Medical History Cardiovascular: None Endocrine/Autoimmune: None GI: Other (he states long history of irregular bowels and intermittent cramping. Has couple of days of diarrhea without noted dietary cause about monthly. No prior testing /eval of this. ) - Present Medications Home Medications: Ambulatory Orders Medication Instructions Recorded Confirmed Docusate Sodium 100Mg Capsule 100 mg PO DAILY #20 cap 03/16/22 [Colace 100Mg Capsule] Hydrocortisone Supp [Anusol-Hc] 25 mg RC DAILY 6 Days #6 supp 03/16/22 Mesalamine 2 gm RC DAILY #180 ml 03/16/22 Oxycodone HCl/Acetaminophen 1 each PO Q6H PRN #14 tablet 03/16/22 [Percocet 7.5-325 mg Tablet] cephALEXin [Keflex] 500 mg PO TID 5 Days #15 cap 03/16/22 metroNIDAZOLE [Flagyl] 250 mg PO TID 5 Days #15 tablet 03/16/22 - Allergies Allergies/Adverse Reactions: Allergies Allergy/AdvReac Type Severity Reaction Status Date / Time No Known Drug Allergies Allergy Verified 03/16/22 08:47 PD ED PE NORMAL - Vitals Vital signs reviewed: Yes - General General: Alert and oriented X 3, Well developed/nourished, Other (appears in considerable pain and is only wanting to stand. Sitting too painful. ) - Cardiac Cardiac: RRR, No murmur - Respiratory Respiratory: Clear bilaterally - Abdomen Abdomen: Normal bowel sounds, Soft, Non tender, Non distended, No organomegaly - Male Male : Deferred - Rectal Rectal: Other (no external lesions/hemorrhoids. there is marked tenderness with some subcut firmness/swelling in left posterior perirectal area. Not tender in sacrum. No skin sores nor rash. Digital exam deferred as very tender. No obviuos hemorrhoids visually. ) Results - Vitals Vitals: Vital Signs - 24 hr 03/16/22 03/16/22 03/16/22 08:44 12:07 14:31 Temperature 35.6 C L Heart Rate 83 95 87 Respiratory 20 20 20 Rate Blood Pressure 143/94 H 131/89 H 124/74 O2 Saturation 99 94 95 Oxygen O2 Source Room air - Labs Labs: Laboratory Tests 03/16/22 03/16/22 11:13 11:13 WBC 11.1 H RBC 4.33 L Hgb 13.4 L Hct 40.2 L MCV 92.8 MCH 30.9 MCHC 33.3 RDW 12.4 Plt Count 254 MPV 8.9 Neut # (Auto) 8.9 H Lymph # (Auto) 1.2 L [place] # (Auto) 0.8 Eos # (Auto) 0.1 Baso # (Auto) 0.0 Absolute Nucleated RBC 0.00 Nucleated RBC % 0.0 Sodium 137 Potassium 3.8 Chloride 100 L Carbon Dioxide 25 Anion Gap 12.0 BUN 18 Creatinine 1.0 Estimated GFR (MDRD) 81 L Glucose 104 H Calcium 9.5 Total Bilirubin 1.1 H AST 31 ALT 50 Alkaline Phosphatase 105 Total Protein 8.1 Albumin 4.4 Globulin 3.7 Albumin/Globulin Ratio 1.2 Lipase 40 - Rads (name of study) abd/pelvic CT Radiology: Prelim report reviewed (no noted abscess nor masses. There is perirectal wall thickening mildly c/w proctitis. No fluid collections. ), EMP re ad indepedently, See rad report PD Medical Decision Making - ED course Complexity details: reviewed results (he has marked pain in rectal area with some soft tissue swelling perirectal, and deeper pain as well. No abscess nor masses on imaging. there is rectal wall thickening. So presume diagnosis of proctitis. he has had intermittent general abd cramps and diarrhea almost monthly long terms. Consider IBD.), considered differential, d/w patient, other (talked with his partner who is in room with the patient. they both deny dyspr ua/urethral symptoms/discharge. ) Reviewed Lab Results: CT showing perirectal wall thickening. However no signs of mass/abscess. He has marked rectal pain but appears well otherwise. Not suspicious for necrotizing infection at this time. Low risk by history/info from him and partner for STDs. Can test for STDs but would treat for presumed infectious/ possible inflammatory proctitis. Social Determinants of Health: MSM sexual orientation. Consider infectious proctitis. But has had longer history of intermittent abd cramps and diarrhea. Also consider Crohns/IBD with now presemtation at rectal area. subsequent colonoscpy could be appropriate when better, or sooner if not improving well with treatment NSAIDs/pain meds/stool softener. Departure - Departure Disposition: 01 Home, Self Care Clinical Impression: Rectal pain, Acute proctitis Condition: Stable Record reviewed to determine appropriate education?: Yes Instructions: ED Colitis Ulcerative Follow-Up: Rachel Pritchett ARNP [Primary Care Provider] - Darrius Gonsales MD [Provider Admit Priv/Credential] - [facility] [Provider Group] Prescriptions: Hydrocortisone Supp [Anusol-Hc] 25 mg RC DAILY 6 Days #6 supp Docusate Sodium 100Mg Capsule [Colace 100Mg Capsule] 100 mg PO DAILY #20 cap metroNIDAZOLE [Flagyl] 250 mg PO TID 5 Days #15 tablet cephALEXin [Keflex] 500 mg PO TID 5 Days #15 cap Mesalamine 2 gm RC DAILY #180 ml Oxycodone HCl/Acetaminophen [Percocet 7.5-325 mg Tablet] 1 each PO Q6H PRN #14 tablet PRN Reason: Pain Comments: Your CT scan showed inflammation around the rectum without any noted abscess or mass. On exam you do have some inflammation around the area to which would be suggestive of some perirectal inflammation. This can be inflammatory or infectious (commonly a bit of both). We can treated as potential infectious colitis/proctitis with a combination of metronidazole and cephalexin 3 times daily for the next 5 days. We can also treat the local inflammation with initially a hydrocortisone suppository daily for the first few days and subsequently then mesalamine anti- inflammatory daily for another week. This could represent a localized outbreak of underlying ulcerative colitis or Crohn's disease given that you have had some diarrhea and pains intermittently in fairly commonly. Subsequent follow-up of this could include a colonoscopy to better evaluate for underlying autoimmune problems such as those. Follow-up with your primary care and/or the surgery office regarding further f ollow-up assuming you get improved over the next several days to week. Return to the ER if not improving well over the next few days return if worsening. Uses stool softener to maintain easy stool output. Use Tylenol every 4-6 hours if needed for pain or oxycodone higher strength tablet every 6 hours if needed for worse pain. I sent your prescriptions to your for preferred pharmacy, [facility] in [place]. I am prescribing a short course of narcotic pain medication for you. These are potentially dangerous and addictive medications that should be used carefully. These medications may constipate you. Take an [id number]-ceugmjo stool softener such as docusate twice daily with plenty of water while taking these medications. If you go 24 hours without a bowel movement, take [id number] MiraLAX, per package instructions. Do not drink or drive while taking these medications. If you received narcotic or sedating medications while in the emergency department do not drive for 24 hours. Store this medication in a safe, secure place and out of reach of children. It is a violation of federal law to give or sell this medication to another person or to use in a manner other than prescribed. The ED will not refill narcotic prescriptions, including prescriptions lost or stolen. You can dispose of unwanted medications at the [facility]'s office or at several pharmacies such as [facility] Discharge Date/Time: 03/16/22 14:56
[2022-03-16] MEDS ORDERED: KETOROLAC 15 MG/ML VIAL IVP STA (11:02)
[2022-03-16] MEDS ORDERED: cefTRIAXone 1 GM VIAL IVP STA (11:02)
[2022-03-16] MEDS ORDERED: HYDROmorphone 1 MG/ML CARPUJECT IVP STA ×3 (11:02→13:50)
[2022-03-16 11:19] LABS: BASOPHILS % (AUTO) 0.3 %; EOSINOPHILS # (AUTO) 0.1 10^3/uL (0.0-0.7); EOSINOPHILS % (AUTO) 0.5 %; HCT - HEMATOCRIT 40.2 % (42.0-52.0); HGB - HEMOGLOBIN 13.4 g/dL (14.0-18.0); LYMPHOCYTES # (AUTO) 1.2 10^3/uL (1.5-3.5); LYMPHOCYTES % (AUTO) 10.9 %; MEAN CORPUSCULAR HEMOGLOBIN 30.9 pg (27.0-31.0); MEAN CORPUSCULAR HGB CONC 33.3 g/dL (32.0-36.0); MEAN CORPUSCULAR VOLUME 92.8 fL (80.0-94.0); MEAN PLATELET VOLUME 8.9 fL (7.4-11.4); MONOCYTES # (AUTO) 0.8 10^3/uL (0.0-1.0); MONOCYTES % (AUTO) 7.6 %; NEUTROPHILS # (AUTO) 8.9 10^3/uL (1.5-6.6); NEUTROPHILS % (AUTO) 80.3 %; PLT - PLATELET COUNT 254 10^3/uL (130-450); RED BLOOD COUNT 4.33 10^6/uL (4.70-6.10); RED CELL DISTRIBUTION WIDTH 12.4 % (12.0-15.0); WHITE BLOOD COUNT 11.1 x10^3/uL (4.8-10.8)
[2022-03-16 11:32] LABS: ALBUMIN 4.4 g/dL (3.2-5.5); ALBUMIN/GLOBULIN RATIO 1.2 (1.0-2.2); BILIRUBIN,TOTAL 1.1 mg/dL (0.2-1.0); CALCIUM 9.5 mg/dL (8.5-10.3); POTASSIUM 3.8 mmol/L (3.5-5.0); TOTAL PROTEIN 8.1 g/dL (6.7-8.2)
[2022-03-16] MEDS ORDERED: iohexoL-300 100 ML VIAL ONE (11:50)
--- NOTE | 2022-03-16 13:29 | CT Report ---
PROCEDURE: ABDOMEN/PELVIS W INDICATIONS: perirectal pain, increasing, swelling CONTRAST: 100ml Omnipauqe 300 TECHNIQUE: After the administration of IV contrast, 5 mm thick sections acquired from the diaphragms to the symp hysis. 5 mm thick coronal and sagittal reformats were acquired. For radiation dose reduction, the f ollowing was used: automated exposure control, adjustment of mA and/or kV according to patient size. COMPARISON: None. FINDINGS: Image quality: Excellent. ABDOMEN: Lung bases: Lung bases are clear. Heart size is normal. Solid organs: Liver is normal in size. Moderate hepatic steatosis is seen, no discrete hepatic lesion . Spleen is normal in size and enhancement. Gallbladder is within normal limits. Biliary system is n on dilated. Pancreas enhances normally. No adrenal nodules. Kidneys demonstrate normal size and en hancement, without hydronephrosis. Peritoneum and bowel: Bowel loops demonstrate normal wall thickness and caliber. Appendix is visual ized and is within normal limits. No free fluid or air. Questionable rectal wall thickening and narr owing of the lumen is seen. No significant perirectal inflammatory changes. No abscess collection. Nodes and vessels: No retroperitoneal or mesenteric adenopathy by size criteria. Aorta and inferior vena cava are normal in size. Miscellaneous: No ventral hernias. PELVIS: Genitourinary: Bladder wall thickness is normal. Miscellaneous: No inguinal hernias or adenopathy. Bones: No suspicious bony lesions. No vertebral body compression fractures. IMPRESSION: 1. Mild rectal wall thickening and edema which may represent low-grade proctitis. No abscess collecti on. Underlying rectal wall mass cannot be excluded, suggest clinical correlation and follow-up. 2. No other area of abnormal bowel wall thickening. Normal appendix. No free fluid of free air. 3. Moderate hepatic steatosis. No discrete hepatic lesion. Reviewed by: Derrick Terry MD on 03/16/2022 1:28 PM PST Approved by: Derrick Terry MD on 03/16/2022 1:28 PM PST Station ID: [id number]
[2022-03-16] MEDS ORDERED: HYDROCORTISONE 25 MG SUPPOSITORY PR STA (13:53)
[2022-03-16] MEDS ORDERED: DEXAMETHASONE 10 MG/ML VIAL IVP STA (14:08)
[2022-03-16 14:31] VITALS: BP 124/74
[2022-03-16] MEDS ORDERED: iohexoL-300 100 ML VIAL IVP ONE (16:51)
== END 2022-03-16 14:56 | disposition home or self-care (01) ==
LOC: ED 08:28
DX: K62.89 Other specified diseases of anus and rectum (principal)
CPT/HCPCS: 36415; 74177; 80053; 83690; 85025; 96374; 96375; 99283; 99285; J1170; J3490; Q9967

== ENCOUNTER 2022-05-17 11:50 | Outpatient (CLI) | payer BC | END 2022-05-17 11:51 | disposition home or self-care (01) | LOC: LAB.S 11:50 | PROVIDERS: ATTEND Registered Nurse | DX: M25.475 Effusion, left foot (principal) | CPT/HCPCS: 36415; 84550 ==

== ENCOUNTER 2022-09-27 11:33 | Outpatient (CLI) | payer BC ==
[2022-09-27 15:09] LABS: BASOPHILS % (AUTO) 0.2 %; EOSINOPHILS # (AUTO) 0.1 10^3/uL (0.0-0.7); EOSINOPHILS % (AUTO) 1.3 %; HCT - HEMATOCRIT 46.1 % (42.0-52.0); HGB - HEMOGLOBIN 15.9 g/dL (14.0-18.0); LYMPHOCYTES % (AUTO) 19.8 %; MEAN CORPUSCULAR HEMOGLOBIN 31.5 pg (27.0-31.0); MEAN CORPUSCULAR HGB CONC 34.5 g/dL (32.0-36.0); MEAN CORPUSCULAR VOLUME 91.3 fL (80.0-94.0); MEAN PLATELET VOLUME 10.2 fL (7.4-11.4); MONOCYTES # (AUTO) 0.5 10^3/uL (0.0-1.0); MONOCYTES % (AUTO) 9.2 %; NEUTROPHILS # (AUTO) 3.6 10^3/uL (1.5-6.6); NEUTROPHILS % (AUTO) 69.3 %; PLT - PLATELET COUNT 242 10^3/uL (130-450); RED BLOOD COUNT 5.05 10^6/uL (4.70-6.10); RED CELL DISTRIBUTION WIDTH 12.3 % (12.0-15.0); WHITE BLOOD COUNT 5.2 x10^3/uL (4.8-10.8)
[2022-09-27 15:59] LABS: FERRITIN 241.3 ng/mL (23.9-336.2)
== END 2022-09-27 11:34 | disposition home or self-care (01) ==
LOC: LAB.S 11:33
PROVIDERS: ATTEND Registered Nurse
DX: G25.81 Restless legs syndrome (principal); E29.1 Testicular hypofunction; Z79.899 Other long term (current) drug therapy
CPT/HCPCS: 36415; 82607; 82728; 82746; 83540; 84403; 84466; 85025